=== PATIENT | female | born 1985 | race Two or more races ===

== ENCOUNTER 2025-10-30 10:43 | Emergency (ER) | payer OTHER ==
[~2025-10-30] VITALS: Ht 165.1 cm; Wt 54.9 kg
[2025-10-30 12:07] VITALS: BP 120/76; O2SAT 100
[2025-10-30] MEDS ORDERED: METHYLPREDNISOLONE SOD SUCC 125 MG VIAL IV ONE (12:30)
[2025-10-30] MEDS ORDERED: TRAMADOL HCL 50 MG TABLET PO ONE (12:30)
[2025-10-30] MEDS ORDERED: METHYLPREDNISOLONE SOD SUCC 125 MG VIAL ONE (13:27)
[2025-10-30 14:11] LABS: BASO % 0.6 % (0.1-1.2); EOS # 0.04 (0.04-0.54); EOS % 0.5 % (0.7-7.0); LYMPH # 1.98 (1.18-3.74); LYMPH % 23.0 % (19.3-53.1); MEAN PLATELET VOLUME 9.90 fl (9.4-12.4); MONO # 0.49 (0.24-0.82); MONO % 5.7 % (4.7-12.5); NEUT # 6.02 (1.56-6.13); NEUT % 70.0 % (34.0-71.1); RED CELL DISTRIBUTION WIDTH 11.1 % (11.6-14.4)
[2025-10-30 14:29] LABS: INR 1.07
[2025-10-30 14:38] LABS: ALT/SGPT 22 U/L (12-78); AST/SGOT 15 U/L (15-37); BILIRUBIN TOTAL 0.59 mg/dL (0.3-1.2); BUN CREA RATIO 18 (7.0-25.0); CREATININE SERUM 0.67 mg/dL (0.55-1.02); GFR 97.48; GLOBULINA 3.2 G/DL (2.4-3.5); GLUCOSE FASTING 82 mg/dL (65-100); OSMOLALITY SERUM 276 MOSM/KG (275-295)
[2025-10-30 14:41] LABS: HCG QUANTITATIVE < 1 mUI/mL (1-3)
[2025-10-30] MEDS ORDERED: KETO10TA2 PO (16:53)
[2025-10-30] MEDS ORDERED: METAXALONE800 MG PO (16:53)
[2025-10-30] MEDS ORDERED: MEDROLPACK PO (16:53)
== END 2025-10-30 17:34 | disposition home or self-care (01) ==
LOC: ER 10:44
PROVIDERS: General Practice
DX: M79.661 Pain in right lower leg (principal)